=== PATIENT | female | born 1965 | race American Indian/Alaskan Native ===

== ENCOUNTER 2017-07-02 10:26 | Emergency (ER) | payer SELFPAY ==
[2017-07-02 11:09] LABS: Basophils % (Auto) 0.4 % (0.0-1.8); Eosinophils % (Auto) 0.7 % (0.0-4.3); Hematocrit 36.5 % (30.3-42.9); Hemoglobin 11.4 gm/dl (10.1-14.3); Mean Corpuscular HGB Conc 31 % (30-34); Mean Corpuscular Hemoglobin 27 pg (28-32); Mean Corpuscular Volume 86 fl (79-97); Platelet Count 331 K/mm3 (140-440); Red Blood Count 4.24 M/mm3 (3.65-5.03); Red Cell Distribution Width 16.8 % (13.2-15.2); White Blood Count 10.4 K/mm3 (4.5-11.0)
[2017-07-02 11:30] LABS: Alanine Aminotransferase 28 units/L (7-56); Albumin/Globulin Ratio 1.1 %; Alkaline Phosphatase 58 units/L (35-129); Anion Gap 19 mmol/L; Blood Urea Nitrogen 9 mg/dL (7-17); Calcium 9.1 mg/dL (8.4-10.2); Carbon Dioxide 26 mmol/L (22-30); Chloride 97.8 mmol/L (98-107); Glucose 85 mg/dL (65-100); Lipase 41 units/L (13-60); Sodium 139 mmol/L (137-145); Total Protein 7.8 g/dL (6.3-8.2)
[2017-07-02] MEDS ORDERED: MORPHINE IV ONE (12:08)
[2017-07-02] MEDS ORDERED: VASOTEC IV ONE (12:10)
[2017-07-02] MEDS ORDERED: ZOFRAN IV ONE (12:10)
--- NOTE | 2017-07-02 12:41 | Emergency Department Report ---
HPI - General Chief Complaint: Abdominal Pain Time Seen by Provider: 07/02/17 12:08 - HPI HPI: Patient is a 52-year-old -[place]is[place] female who presents to the ED with severe epigastric pain, 10 out of 10. She states that her pain is accompanied by nausea, vomiting but no urinary symptoms or diarrhea. She states her pain started yesterday evening after eating chicken. Patient has not taking any medication at home for his symptoms. She denies any exacerbating factors. She denies any alleviating factors. She denies any recent travel, She denies any sick contacts. Patient also have a history of a blood pressure but did not take her medications today. Her blood pressure is high and she states that she is having accompanying chest discomfort radiating to her left arm. She usually takes amlodipine 10 mg by mouth daily for her blood pressure. MD Complaint: abdominal pain -: Gradual Location: Epigastric Radiation: none Migration to: Lower abdomen Severity scale (0 -10): 10 Quality: sharp, burning Improves With: nothing Associated Symptoms: nausea, vomiting, chills ED Past Medical Hx - Past Medical History Previous Medical History?: Yes Hx Hypertension: Yes Additional medical history: Fibromyalgia - Surgical History Past Surgical History?: No - Family History Family history: hypertension - Social History Smoking Status: Never Smoker Substance Use Type: Alcohol - Medications Home Medications: Home Medications Medication Instructions Recorded Confirmed Last Taken Type Ciprofloxacin HCl [Ciprofloxacin 500 mg PO Q12H #20 tab 07/02/17 Unknown Rx TAB] Promethazine [Phenergan TAB] 25 mg PO Q6HR PRN #30 tab 07/02/17 Unknown Rx amLODIPine [Norvasc] 10 mg PO DAILY #30 tab 07/02/17 Unknown Rx ED Review of Systems ROS: Stated complaint: VOMITIN ABDOMINAL PAIN, HIGH BLOOD PRESSURE. Other details as noted in HPI Comment: All other systems reviewed and negative Eyes: denies: eye pain, eye discharge, vision change ENT: denies: ear pain, throat pain Respiratory: denies: cough, shortness of breath, wheezing Cardiovascular: chest pain Endocrine: no symptoms reported Gastrointestinal: abdominal pain, nausea Physical Exam - Physical Exam Vital Signs: Vital Signs 07/02/17 07/02/17 07/02/17 10:37 12:00 12:04 Temperature 98.6 F Pulse Rate 93 H Respiratory 16 26 H 18 Rate Blood Pressure 195/134 Blood Pressure [Right] O2 Sat by Pulse 100 99 99 Oximetry 07/02/17 07/02/17 07/02/17 12:07 12:15 12:32 Temperature 98.6 F Pulse Rate 95 H 99 H Respiratory 18 25 H 18 Rate Blood Pressure 218/128 Blood Pressure 225/133 [Right] O2 Sat by Pulse 100 Oximetry Physical Exam: - Physical Exam - General Limitations: No Limitations General appearance: alert, in no apparent distress, obese - Head Head exam: Present: atraumatic, normocephalic - Eye Eye exam: Present: normal appearance - ENT ENT exam: Present: mucous membranes moist - Neck Neck exam: Present: normal inspection - Respiratory Respiratory exam: Present: normal lung sounds bilaterally. Absent: respiratory distress - Cardiovascular Cardiovascular Exam: Present: normal rhythm, tachycardia. Absent: systolic murmur, diastolic murmur, rubs, gallop - GI/Abdominal GI/Abdominal exam: Present: soft, normal bowel sounds, but has epigastric tenderness - Extremities Exam Extremities exam: Present: normal inspection - Back Exam Back exam: Present: normal inspection - Neurological Exam Neurological exam: Present: alert, oriented X3 - Psychiatric Psychiatric exam: normal affect and mood - Skin Skin exam: Present: warm, dry, intact, normal color. Absent: rash ED Course Vital Signs 07/02/17 07/02/17 07/02/17 10:37 12:00 12:04 Temperature 98.6 F Pulse Rate 93 H Respiratory 16 26 H 18 Rate Blood Pressure 195/134 Blood Pressure [Right] O2 Sat by Pulse 100 99 99 Oximetry 07/02/17 07/02/17 07/02/17 12:07 12:15 12:32 Temperature 98.6 F Pulse Rate 95 H 99 H Respiratory 18 25 H 18 Rate Blood Pressure 218/128 Blood Pressure 225/133 [Right] O2 Sat by Pulse 100 Oximetry ED Medical Decision Making - Lab Data Result diagrams: 07/02/17 10:51 07/02/17 10:51 Critical care attestation.: If time is entered above; I have spent that time in minutes in the direct care of this critically ill patient, excluding procedure time. ED Disposition Clinical Impression: Enteritis, Hepatomegaly Disposition: DC-01 TO HOME OR SELFCARE Is pt being admited?: No Does the pt Need Aspirin: No Condition: Stable Instructions: Abdominal Pain (ED) Prescriptions: amLODIPine [Norvasc] 10 mg PO DAILY #30 tab Ciprofloxacin HCl [Ciprofloxacin TAB] 500 mg PO Q12H #20 tab Promethazine [Phenergan TAB] 25 mg PO Q6HR PRN #30 tab PRN Reason: Nausea Referrals: PRIMARY CARE, [Primary Care Provider] - 3-5 Days DAMON MORELAND MD [Staff Physician] - 3-5 Days
--- NOTE | 2017-07-02 12:48 | XRay Report ---
CHEST ONE VIEW INDICATION: Chest pain radiating to left arm, shortness of breath, high blood pressure. COMPARISON: None similar. FINDINGS: Portable, single, frontal chest radiograph demonstrates normal cardiomediastinal silhouette. Clear lungs. Mild thoracic spine degenerative changes. Extrinsic EKG leads. CONCLUSION: No acute disease in the chest. Thank you for the opportunity to participate in this patient's care.
[2017-07-02] MEDS ORDERED: NACL ONE (12:57)
[2017-07-02 13:44] LABS: Bilirubin,Urine NEG (Negative); Blood,Urine NEG (Negative); Ketones,Urine 20 mg/dL (Negative); Leukocyte Esterase,Urine NEG (Negative); Nitrite,Urine NEG (Negative); Urobilinogen,Urine < 2.0 mg/dL (<2.0)
--- NOTE | 2017-07-02 14:20 | Cat Scan Report ---
CT ABDOMEN AND PELVIS WITH CONTRAST INDICATION: Severe epigastric abdominal pain. COMPARISON: None similar. FINDINGS: Abdomen and pelvis CT performed following intravenous administration of 100 cc of Omnipaque 300. LUNG BASES: Top normal heart size. Nonspecific distal esophageal wall prominence/thickening, not excluded for gastroesophageal reflux and/or hiatal hernia, amongst others. Right hemidiaphragm slightly elevated. ABDOMEN: Mild diffuse fatty hepatic infiltration suspected. Right hepatic lobe 16.7 cm in length. Increased focal fatty infiltration also noted involving the caudate lobe, periligamentous and also slight pericholecystic. No biliary dilatation. Spleen, gallbladder, pancreas, adrenals, nonaneurysmal abdominal aorta, IVC and kidneys within normal limits. No ascites or size significant adenopathy. Minimal abdominal ascites now noted as perisplenic and in the Taylor's pouch. Nonopacified GI tract evaluation limited, though overall nonobstructive. Duodenum however prominent/dilated with maximum caliber of 3.6 cm along the third portion, axial image 156, series 2. Few of the left hemiabdomen small bowel loops nondistended with somewhat exaggerated wall thickness as on axial image 218, series 2. Few other mid to distal small bowel loops in the right lower quadrant prominent/fluid-filled with caliber between 1.6-2.6 cm, axial images 224-260 with surrounding ascites and stranding. Terminal ileum however appears unremarkable as on axial image 197. Normal appendix also felt seen more anteriorly. Normal caliber colon. Slight distal descending colon diverticula. Fat-containing umbilical hernia with a transverse neck of 1.1 cm. PELVIS: Moderate pelvic free fluid measuring 18 HU. Some endometrial canal fluid presumed physiologic. Otherwise unremarkable uterus, urinary bladder and the rectosigmoid. Few small left hemipelvic phleboliths. No size significant adenopathy. Asymmetrically advanced right hip degenerative changes with hypertrophy/spurring, heterogeneity and severe joint space narrowing. Mild lumbar levoscoliosis apex about L2. Mild multilevel spinal degenerative spurring as well. CONCLUSION: 1. CT appearance suspicious for mid to distal enteritis involving the lower abdominal/right lower quadrant small bowel loops, as described. Slight ileus may also be developing. 2. Moderate pelvic and minimal abdominal ascites. 3. Various other incidental findings, including fatty liver, small fat-containing umbilical hernia and asymmetrically advanced right hip degenerative changes, amongst others, as above. I phoned the above results to Dr. Carbajal in the ER, 2:10 PM, 07/02/2017. Thank you for the opportunity to participate in this patient's care.
[2017-07-02 15:15] VITALS: BP 164/87
== END 2017-07-02 15:15 | disposition home or self-care (01) ==
LOC: ED 10:26
DX: K52.9 Noninfective gastroenteritis and colitis, unspecified (principal); R16.0 Hepatomegaly, not elsewhere classified; I10 Essential (primary) hypertension
CPT/HCPCS: 36415; 71010; 74177; 80053; 81001; 83690; 84484; 84703; 85025; 93005; 93010; 96374; 96375; 99284; J2270; J2405

== ENCOUNTER 2017-11-03 11:57 | Emergency (ER) | payer SELFPAY ==
[2017-11-03] MEDS ORDERED: NORVASC PO ONE (14:03)
[2017-11-03 15:35] LABS: Basophils # (Auto) 0.1 K/mm3 (0.0-0.1); Eosinophils % (Auto) 0.7 % (0.0-4.3); Hematocrit 36.8 % (30.3-42.9); Hemoglobin 11.8 gm/dl (10.1-14.3); Lymphocytes # (Auto) 0.9 K/mm3 (1.2-5.4); Lymphocytes % (Auto) 13.9 % (13.4-35.0); Mean Corpuscular HGB Conc 32 % (30-34); Mean Corpuscular Hemoglobin 28 pg (28-32); Mean Corpuscular Volume 87 fl (79-97); Monocytes # (Auto) 0.6 K/mm3 (0.0-0.8); Monocytes % (Auto) 9.1 % (0.0-7.3); Platelet Count 322 K/mm3 (140-440); Red Blood Count 4.22 M/mm3 (3.65-5.03); Red Cell Distribution Width 16.4 % (13.2-15.2)
[2017-11-03 15:46] LABS: BUN/Creatinine Ratio 11; Blood Urea Nitrogen 8 mg/dL (7-17); Calcium 8.9 mg/dL (8.4-10.2); Hemolysis Index 9
[2017-11-03 16:12] LABS: Bilirubin,Urine NEG (Negative); Blood,Urine LG (Negative); Color,Urine Yellow (Yellow); Mucus,Urine 1+ /HPF; Nitrite,Urine NEG (Negative)
[2017-11-04 03:14] VITALS: BP 141/93
[2017-11-04] MEDS ORDERED: MOTRIN PO ONE (06:47)
--- NOTE | 2017-11-04 06:54 | Emergency Department Report ---
- General Chief Complaint: Upper Respiratory Infection Stated Complaint: BODY ACHES/ HTN/ COUGH Time Seen by Provider: 11/04/17 06:46 Source: patient Mode of arrival: Ambulatory Limitations: No Limitations - History of Present Illness Initial Comments: Patient is a 52-year-old -[place] female with history of hypertension who presents with flulike symptoms times 2 days symptoms described as cough fever malaise sore throat and head congestion pain patient denies sick contacts secondary complaint out of blood pressure medicines 3 months on amlodipine 10 mg by mouth daily with last dose being 3 months ago. Patient denies cough shortness of breath no wheezing MD Complaint: fever, cough, sore throat, rhinorrhea, nasal congestion, sinus pain Onset/Timin -: days(s) Severity: moderate Severity scale (0 -10): 4 Quality: crushing Consistency: constant Improves With: nothing Worsens With: activity Associated Symptoms: fever, chills, myalgias, rhinorrhea, nasal congestion, sore throat, cough, ear pain. denies: nausea, vomiting, dysuria, rash Treatments Prior to Arrival: none - Related Data Previous Rx's Medication Instructions Recorded Last Taken Type Ciprofloxacin HCl [Ciprofloxacin 500 mg PO Q12H #20 tab 07/02/17 Unknown Rx TAB] Promethazine [Phenergan TAB] 25 mg PO Q6HR PRN #30 tab 07/02/17 Unknown Rx amLODIPine [Norvasc] 10 mg PO DAILY #30 tab 07/02/17 Unknown Rx Amoxicillin/Potassium Clav 1 each PO BID #20 tablet 11/04/17 Unknown Rx [Augmentin 875-125 Tablet] Codeine Phosphate/Guaifenesin 5 ml PO TID PRN #120 ml 11/04/17 Unknown Rx [Guaifenesin-Codeine Syrup] Ibuprofen 800 mg PO TID PRN #30 tablet 11/04/17 Unknown Rx amLODIPine [Norvasc] 10 mg PO DAILY #90 tab 11/04/17 Unknown Rx Allergies Allergy/AdvReac Type Severity Reaction Status Date / Time No Known Allergies Allergy Unverified 04/22/15 11:52 ED Review of Systems ROS: Stated complaint: BODY ACHES/ HTN/ COUGH Other details as noted in HPI Constitutional: chills, fever. denies: weakness Eyes: denies: eye pain, eye discharge, vision change ENT: ear pain, throat pain, congestion Respiratory: cough. denies: shortness of breath, wheezing Cardiovascular: denies: chest pain, palpitations Endocrine: no symptoms reported Gastrointestinal: denies: abdominal pain, nausea, diarrhea Genitourinary: denies: urgency, dysuria, discharge Musculoskeletal: denies: back pain, joint swelling, arthralgia Skin: denies: rash, lesions Neurological: denies: headache, weakness, paresthesias, vertigo Psychiatric: denies: anxiety, depression Hematological/Lymphatic: denies: easy bleeding, easy bruising ED Past Medical Hx - Past Medical History Previous Medical History?: Yes Hx Hypertension: Yes Additional medical history: Fibromyalgia - Surgical History Past Surgical History?: No - Family History Family history: hypertension - Social History Smoking Status: Never Smoker Substance Use Type: Alcohol, Prescribed - Medications Home Medications: Home Medications Medication Instructions Recorded Confirmed Last Taken Type Ciprofloxacin HCl [Ciprofloxacin 500 mg PO Q12H #20 tab 07/02/17 Unknown Rx TAB] Promethazine [Phenergan TAB] 25 mg PO Q6HR PRN #30 tab 07/02/17 Unknown Rx amLODIPine [Norvasc] 10 mg PO DAILY #30 tab 07/02/17 Unknown Rx Amoxicillin/Potassium Clav 1 each PO BID #20 tablet 11/04/17 Unknown Rx [Augmentin 875-125 Tablet] Codeine Phosphate/Guaifenesin 5 ml PO TID PRN #120 ml 11/04/17 Unknown Rx [Guaifenesin-Codeine Syrup] Ibuprofen 800 mg PO TID PRN #30 tablet 11/04/17 Unknown Rx amLODIPine [Norvasc] 10 mg PO DAILY #90 tab 11/04/17 Unknown Rx ED Physical Exam - General Limitations: No Limitations General appearance: alert, in no apparent distress - Head Head exam: Present: atraumatic, normocephalic - Eye Eye exam: Present: normal appearance, PERRL, EOMI Pupils: Present: normal accommodation - ENT ENT exam: Present: mucous membranes moist - Expanded ENT Exam Expanded TM/Canal exam: Erythema: Right TM, Left TM, Canal Tenderness: Right TM, Left TM Mouth exam: Present: trismus Throat exam: Positive: tonsillar erythema, tonsillomegaly, other (bilat maxillary and sinus pain to palpation there is no erythema no edema ). Negative : tonsillar exudate, R peritonsillar mass, L peritonsillar mass - Neck Neck exam: Present: normal inspection, full ROM. Absent: tenderness, lymphadenopathy, thyromegaly - Respiratory Respiratory exam: Present: normal lung sounds bilaterally. Absent: respiratory distress, wheezes, stridor, chest wall tenderness - Cardiovascular Cardiovascular Exam: Present: regular rate, normal rhythm, normal heart sounds. Absent: systolic murmur, diastolic murmur, rubs, gallop - GI/Abdominal GI/Abdominal exam: Present: soft, normal bowel sounds. Absent: distended, tenderness, guarding, rebound, rigid, mass, bruit - Rectal Rectal exam: Present: deferred - Extremities Exam Extremities exam: Present: normal inspection, full ROM, normal capillary refill. Absent: tenderness, pedal edema, joint swelling, calf tenderness - Back Exam Back exam: Present: normal inspection, full ROM. Absent: tenderness, CVA tenderness (R), CVA tenderness (L), muscle spasm, paraspinal tenderness, vertebral tenderness, rash noted - Neurological Exam Neurological exam: Present: alert, oriented X3, CN II-XII intact, normal gait, reflexes normal - Psychiatric Psychiatric exam: Present: normal affect, normal mood - Skin Skin exam: Present: warm, dry, intact, normal color. Absent: rash ED Course Vital Signs 11/03/17 11/03/17 11/04/17 13:55 14:10 03:13 Temperature 99.9 F H 98.3 F Pulse Rate 121 H 121 H 102 H Respiratory 22 14 Rate Blood Pressure 180/120 180/120 141/93 O2 Sat by Pulse 99 98 Oximetry ED Medical Decision Making - Lab Data Result diagrams: 11/03/17 15:15 11/03/17 15:15 Laboratory Tests 11/03/17 11/03/17 11/03/17 15:15 15:15 Unknown WBC 6.8 RBC 4.22 Hgb 11.8 Hct 36.8 MCV 87 MCH 28 MCHC 32 RDW 16.4 H Plt Count 322 Lymph % (Auto) 13.9 [place] % (Auto) 9.1 H Eos % (Auto) 0.7 Baso % (Auto) 1.0 Lymph # 0.9 L [place] # 0.6 Eos # 0.0 Baso # 0.1 Seg Neutrophils % 75.3 H Seg Neutrophils # 5.1 Sodium 136 L Potassium 3.4 L Chloride 95.0 L Carbon Dioxide 25 Anion Gap 19 BUN 8 Creatinine 0.7 Estimated GFR > 60 BUN/Creatinine Ratio 11 Glucose 80 Calcium 8.9 Urine Color Yellow Urine Turbidity Clear Urine pH 5.0 Ur Specific [place] 1.029 Urine Protein 100 mg/dl Urine Glucose (UA) Neg Urine Ketones 80 Urine Blood Lg Urine Nitrite Neg Urine Bilirubin Neg Urine Urobilinogen 2.0 Ur Leukocyte Esterase Neg Urine WBC (Auto) 1.0 Urine RBC (Auto) 3.0 U Epithel Cells (Auto) 6.0 Urine Mucus 1+ - Medical Decision Making Patient is a 52-year-old -[place] female with history of hypertension who presents with flulike symptoms times 2 days symptoms described as cough fever malaise sore throat and head congestion pain patient denies sick contacts secondary complaint out of blood pressure medicines 3 months on amlodipine 10 mg by mouth daily with last dose being 3 months ago. Patient denies cough shortness of breath no wheezing exam: pt appears well, hr now 102, bp: 141/93 after nsaid and dose of home medications, pt denies sob appears nontoxic, exam: ent: bilat tm erythema pain, nose; boggy bilat turbinate erythema clear post nasal , sinus: bilat maxillary and frontal sinus pain , phayrnx: moderate erythema no exudate no lesions uvula midline no stridor, lungs clear bilat no wheezing , pt is tolerating po intake without n/v headache is improved to 1/10 at this plan: stop otc cold medications as they cause elvelated bp, hydration regimen as directed, refill amlodipine, tx for uri with sinusitis, follow up with [facility] in 2-3 days return to emergency if symptoms worsen. pt verbalized agreement and understanding with discharge plan. Critical care attestation.: If time is entered above; I have spent that time in minutes in the direct care of this critically ill patient, excluding procedure time. ED Disposition Clinical Impression: URI (upper respiratory infection) Qualifiers: URI type: unspecified viral URI Qualified Code(s): J06.9 - Acute upper respiratory infection, unspecified; B97.89 - Other viral agents as the cause of diseases classified elsewhere; B97.89 - Other viral agents as the cause of diseases classified elsewhere AOM (acute otitis media) Qualifiers: Otitis media type: serous Laterality: bilateral Recurrence: not specified as recurrent Qualified Code(s): H65.03 - Acute serous otitis media, bilateral Sinusitis Qualifiers: Sinusitis location: maxillary Chronicity: acute Recurrence: non-recurrent Qualified Code(s): J01.00 - Acute maxillary sinusitis, unspecified Disposition: TO HOME OR SELFCARE Is pt being admited?: No Does the pt Need Aspirin: No Condition: Good Instructions: Sinusitis (ED), Otitis Media (ED), Upper Respiratory Infection ( ED) Prescriptions: amLODIPine [Norvasc] 10 mg PO DAILY #90 tab Amoxicillin/Potassium Clav [Augmentin 875-125 Tablet] 1 each PO BID #20 tablet Codeine Phosphate/Guaifenesin [Guaifenesin-Codeine Syrup] 5 ml PO TID PRN #120 ml PRN Reason: cough Ibuprofen 800 mg PO TID PRN #30 tablet PRN Reason: pain and fever Referrals: SUSANA MARTIN MD [Primary Care Provider] - 3-5 Days Forms: Work/School Release Form(ED) Time of Disposition: 07:15
== END 2017-11-04 07:25 | disposition home or self-care (01) ==
LOC: ED 11:57
DX: J06.9 Acute upper respiratory infection, unspecified (principal); H66.93 Otitis media, unspecified, bilateral; J32.1 Chronic frontal sinusitis; J32.0 Chronic maxillary sinusitis; I10 Essential (primary) hypertension
CPT/HCPCS: 36415; 80048; 81001; 85025; 99283

== ENCOUNTER 2017-11-07 07:16 | Emergency (ER) | payer SELFPAY ==
[2017-11-07 08:04] VITALS: BP 161/106
[2017-11-07] MEDS ORDERED: MOTRIN PO ONE (10:04)
--- NOTE | 2017-11-07 10:07 | Emergency Department Report ---
ED ENT HPI - General Chief complaint: Earache Stated complaint: Ear Hurts Time Seen by Provider: 11/07/17 10:03 Source: patient Mode of arrival: Ambulatory Limitations: No Limitations - History of Present Illness Initial comments: 52-year-old -[place] female comes in for complaint of right ear ache for 3 days. It is reported the patient was seen in the ED for the same. It is not getting any better. Patient does admit to having a recent upper respiratory issues. 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 Her last menses was 11/03/2017. She denies any fever or chills upon review of chart and noted her blood pressures elevated at 161/108. She reports that she took her blood pressure medicine this morning. complaint: ear pain Onset/Timin -: days(s) Location: R ear Severity scale (0 -10): 7 Quality: aching Consistency: constant - Related Data Previous Rx's Medication Instructions Recorded Last Taken Type Ciprofloxacin HCl [Ciprofloxacin 500 mg PO Q12H #20 tab 07/02/17 Unknown Rx TAB] Promethazine [Phenergan TAB] 25 mg PO Q6HR PRN #30 tab 07/02/17 Unknown Rx amLODIPine [Norvasc] 10 mg PO DAILY #30 tab 07/02/17 Unknown Rx Amoxicillin/Potassium Clav 1 each PO BID #20 tablet 11/04/17 Unknown Rx [Augmentin 875-125 Tablet] Codeine Phosphate/Guaifenesin 5 ml PO TID PRN #120 ml 11/04/17 Unknown Rx [Guaifenesin-Codeine Syrup] Ibuprofen 800 mg PO TID PRN #30 tablet 11/04/17 Unknown Rx amLODIPine [Norvasc] 10 mg PO DAILY #90 tab 11/04/17 Unknown Rx Ibuprofen 600 mg PO Q8H PRN #30 tablet 11/07/17 Unknown Rx Allergies Allergy/AdvReac Type Severity Reaction Status Date / Time No Known Allergies Allergy Verified 11/07/17 08:01 ED Dental HPI - General Chief complaint: Earache Stated complaint: Ear Hurts Time Seen by Provider: 11/07/17 10:03 Source: patient Mode of arrival: Ambulatory Limitations: No Limitations - Related Data Previous Rx's Medication Instructions Recorded Last Taken Type Ciprofloxacin HCl [Ciprofloxacin 500 mg PO Q12H #20 tab 09/07/17 Unknown Rx TAB] Promethazine [Phenergan TAB] 25 mg PO Q6HR PRN #30 tab 07/02/17 Unknown Rx amLODIPine [Norvasc] 10 mg PO DAILY #30 tab 07/02/17 Unknown Rx Amoxicillin/Potassium Clav 1 each PO BID #20 tablet 11/04/17 Unknown Rx [Augmentin 875-125 Tablet] Codeine Phosphate/Guaifenesin 5 ml PO TID PRN #120 ml 11/04/17 Unknown Rx [Guaifenesin-Codeine Syrup] Ibuprofen 800 mg PO TID PRN #30 tablet 11/04/17 Unknown Rx amLODIPine [Norvasc] 10 mg PO DAILY #90 tab 11/04/17 Unknown Rx Ibuprofen 600 mg PO Q8H PRN #30 tablet 11/07/17 Unknown Rx Allergies Allergy/AdvReac Type Severity Reaction Status Date / Time No Known Allergies Allergy Verified 11/07/17 08:01 ED Review of Systems ROS: Stated complaint: Ear Hurts Other details as noted in HPI Constitutional: denies: chills, fever Eyes: denies: eye pain, eye discharge, vision change ENT: ear pain (right) Respiratory: denies: cough, shortness of breath, wheezing Cardiovascular: denies: chest pain, palpitations Endocrine: no symptoms reported Gastrointestinal: denies: abdominal pain, nausea, diarrhea Genitourinary: denies: urgency, dysuria, discharge Musculoskeletal: denies: back pain, joint swelling, arthralgia Skin: denies: rash, lesions Neurological: denies: headache, weakness, paresthesias Psychiatric: denies: anxiety, depression Hematological/Lymphatic: denies: easy bleeding, easy bruising ED Past Medical Hx - Past Medical History Hx Hypertension: Yes Additional medical history: Fibromyalgia/ DEAF IN LEFT EAR - Surgical History Past Surgical History?: No - Social History Smoking Status: Never Smoker Substance Use Type: None - Medications Home Medications: Home Medications Medication Instructions Recorded Confirmed Last Taken Type Ciprofloxacin HCl [Ciprofloxacin 500 mg PO Q12H #20 tab 07/02/17 Unknown Rx TAB] Promethazine [Phenergan TAB] 25 mg PO Q6HR PRN #30 tab 07/02/17 Unknown Rx amLODIPine [Norvasc] 10 mg PO DAILY #30 tab 07/02/17 Unknown Rx Amoxicillin/Potassium Clav 1 each PO BID #20 tablet 11/04/17 Unknown Rx [Augmentin 875-125 Tablet] Codeine Phosphate/Guaifenesin 5 ml PO TID PRN #120 ml 11/04/17 Unknown Rx [Guaifenesin-Codeine Syrup] Ibuprofen 800 mg PO TID PRN #30 tablet 11/04/17 Unknown Rx amLODIPine [Norvasc] 10 mg PO DAILY #90 tab 11/04/17 Unknown Rx Ibuprofen 600 mg PO Q8H PRN #30 tablet 11/07/17 Unknown Rx ED Physical Exam - General Limitations: No Limitations General appearance: alert, in no apparent distress - Head Head exam: Present: atraumatic, normocephalic - Eye Eye exam: Present: normal appearance - ENT ENT exam: Present: mucous membranes moist - Expanded ENT Exam Expanded TM/Canal exam: Cerumen Impaction: Right TM, Canal Tenderness: Right TM (tragus) - Neck Neck exam: Present: normal inspection - Respiratory Respiratory exam: Present: normal lung sounds bilaterally. Absent: respiratory distress - Cardiovascular Cardiovascular Exam: Present: regular rate, normal rhythm. Absent: systolic murmur, diastolic murmur, rubs, gallop ED Course Vital Signs 11/07/17 08:01 Temperature 98.3 F Pulse Rate 100 H Respiratory 16 Rate Blood Pressure 161/106 O2 Sat by Pulse 99 Oximetry ED Medical Decision Making - Medical Decision Making Patient's been evaluated by this provider fast track. I informed patient that her right ear has cerumen impaction and that I will need to have one of the nurses or techs to remove wax and unable to do a better exam of the right ear. Patient verbalized understanding. Critical care attestation.: If time is entered above; I have spent that time in minutes in the direct care of this critically ill patient, excluding procedure time. ED Disposition Clinical Impression: Right ear impacted cerumen, Deafness in left ear Hypertension Qualifiers: Hypertension type: unspecified Qualified Code(s): I10 - Essential (primary) hypertension Disposition: TO HOME OR SELFCARE Is pt being admited?: No Does the pt Need Aspirin: No Condition: Stable Instructions: Hypertension (ED), Cerumen Impaction (ED) Additional Instructions: Please follow up with the ear nose and throat for chronic cerumen impaction. Continue with her antibiotics and ibuprofen for pain management. Please understand while taking either ibuprofen you need to drink plenty of fluids such as water and eat prior to taking the medication. Prescriptions: Ibuprofen 600 mg PO Q8H PRN #30 tablet PRN Reason: Pain Referrals: PRIMARY CARE, [Primary Care Provider] - 3-5 Days ENT [facility] [Provider Group] - 3-5 Days ENT [facility] [Provider Group] - 3-5 Days
[2017-11-07] MEDS ORDERED: COLACE PO ONE (10:35)
== END 2017-11-07 11:26 | disposition home or self-care (01) ==
LOC: ED 07:16
DX: H61.21 Impacted cerumen, right ear (principal); I10 Essential (primary) hypertension; M79.7 Fibromyalgia
CPT/HCPCS: 99282

== ENCOUNTER 2019-01-24 09:10 | Emergency (ER) | payer SELFPAY ==
[2019-01-24] MEDS ORDERED: SUBLIMAZE IM ONE (09:43)
[2019-01-24] MEDS ORDERED: ZOFRAN IM ONE (09:43)
[2019-01-24 10:03] LABS: Basophils % (Auto) 0.4 % (0.0-1.8); Eosinophils # (Auto) 0.1 K/mm3 (0.0-0.4); Eosinophils % (Auto) 0.8 % (0.0-4.3); Hemoglobin 11.1 gm/dl (10.1-14.3); Lymphocytes # (Auto) 2.2 K/mm3 (1.2-5.4); Lymphocytes % (Auto) 23.5 % (13.4-35.0); Mean Corpuscular HGB Conc 33 % (30-34); Mean Corpuscular Volume 85 fl (79-97); Monocytes # (Auto) 0.6 K/mm3 (0.0-0.8); Monocytes % (Auto) 5.9 % (0.0-7.3); Platelet Count 393 K/mm3 (140-440); Red Blood Count 3.98 M/mm3 (3.65-5.03); Red Cell Distribution Width 18.4 % (13.2-15.2)
[2019-01-24] MEDS ORDERED: CATAPRES PO ONE (10:08)
--- NOTE | 2019-01-24 10:14 | Emergency Department Report ---
HPI - General Chief Complaint: Pain General Time Seen by Provider: 01/24/19 09:35 - HPI HPI: Room 3 The patient is a 53-year-old female presenting with a chief complaint of left flank pain. The patient states for one week she's had pain in her left flank that sometimes migrates to the right flank. Patient denies dysuria or hematuria. Patient denies nausea or vomiting. Patient denies history of fever. Patient gives her pain a score of 10/10. Location: Left flank Duration: One week Quality: Pain Severity: 10/10 Modifying factors: [see above] Context: [see above] Mode of transportation: [not driving] ED Past Medical Hx - Past Medical History Previous Medical History?: Yes Hx Hypertension: Yes Additional medical history: Fibromyalgia/ DEAF IN LEFT EAR - Surgical History Past Surgical History?: No - Family History Family history: no significant - Social History Smoking Status: Never Smoker Substance Use Type: None (denies illicit drug use), Alcohol (occasional) - Medications Home Medications: Home Medications Medication Instructions Recorded Confirmed Last Taken Type Ciprofloxacin HCl [Ciprofloxacin 500 mg PO Q12H #20 tab 07/02/17 Unknown Rx TAB] Promethazine [Phenergan TAB] 25 mg PO Q6HR PRN #30 tab 07/02/17 Unknown Rx amLODIPine [Norvasc] 10 mg PO DAILY #30 tab 07/02/17 Unknown Rx Amoxicillin/Potassium Clav 1 each PO BID #20 tablet 11/04/17 Unknown Rx [Augmentin 875-125 Tablet] Codeine Phosphate/Guaifenesin 5 ml PO TID PRN #120 ml 11/04/17 Unknown Rx [Guaifenesin-Codeine Syrup] Ibuprofen 800 mg PO TID PRN #30 tablet 11/04/17 Unknown Rx amLODIPine [Norvasc] 10 mg PO DAILY #90 tab 11/04/17 Unknown Rx Ibuprofen 600 mg PO Q8H PRN #30 tablet 11/07/17 Unknown Rx Cyclobenzaprine [Flexeril] 10 mg PO TID PRN #14 tablet 01/24/19 Unknown Rx Ibuprofen [Motrin 800 MG tab] 800 mg PO Q8HR PRN #20 tablet 01/24/19 Unknown Rx amLODIPine [Norvasc] 5 mg PO DAILY #90 tab 01/24/19 Unknown Rx ED Review of Systems ROS: Stated complaint: LFT SIDE PAIN/HBP/RT SIDE HIP Other details as noted in HPI Constitutional: no symptoms reported. denies: fever Eyes: denies: eye pain ENT: denies: throat pain Respiratory: no symptoms reported Cardiovascular: denies: chest pain Endocrine: no symptoms reported Gastrointestinal: denies: abdominal pain, nausea, vomiting Genitourinary: denies: dysuria, hematuria Musculoskeletal: back pain Neurological: denies: headache Physical Exam - Physical Exam Vital Signs: Vital Signs 01/24/19 09:15 Temperature 98.4 F Pulse Rate 114 H Respiratory 18 Rate Blood Pressure 228/126 O2 Sat by Pulse 100 Oximetry Physical Exam: GENERAL: The patient is well-developed well-nourished female lying on stretcher not appearing to be in acute distress. [] HEENT: Normocephalic. Atraumatic. Extraocular motions are intact. Patient has moist mucous membranes. NECK: Supple. Trachea midline CHEST/LUNGS: Clear to auscultation. There is no respiratory distress noted. HEART/CARDIOVASCULAR: Regular. There is no tachycardia. There is no gallop rub or murmur. ABDOMEN: Abdomen is soft, nontender. Patient has normal bowel sounds. There is no abdominal distention. SKIN: There is no rash. There is no edema. There is no diaphoresis. NEURO: The patient is awake, alert, and oriented. The patient is cooperative. The patient has normal speech MUSCULOSKELETAL: There is left CVA tenderness. There is no evidence of acute injury. ED Course Vital Signs 01/24/19 09:15 Temperature 98.4 F Pulse Rate 114 H Respiratory 18 Rate Blood Pressure 228/126 O2 Sat by Pulse 100 Oximetry ED Medical Decision Making - Lab Data Result diagrams: 01/24/19 09:46 01/24/19 09:46 - Radiology Data Radiology results: report reviewed (CT abdomen and pelvis), image reviewed (CT abdomen and pelvis) [facility] [address] [place] [address] Cat Scan Report Signed Patient: GEMA HERNANDEZ MR#: [id number] : 1965 Acct:[id number] Age/Sex: 53 / F ADM Date: 01/24/19 Loc: ED Attending Dr: Ordering Physician: MILLICENT PIÑA MD Date of Service: 01/24/19 Procedure(s): CT abdomen pelvis wo con Accession Number(s): [id number] cc: MILLICENT PIÑA MD CT ABDOMEN PELVIS WITHOUT CONTRAST: HISTORY: Left flank pain. COMPARISON: 07/02/17. TECHNIQUE: Helical CT in 1.25mm intervals without IV contrast. Sagittal and coronal reconstructions. FINDINGS: Lung bases: Normal. Liver: Normal. Biliary system: Normal. Pancreas: Normal. Spleen: Normal. Kidneys/ureters/bladder: Normal. Adrenal glands: Normal. Aorta: Normal. Intestines: Normal. Appendix: Normal. Pelvic viscera: Normal. Ascites: None. Adenopathy: None. Musculoskeletal: Intact. Advanced degenerative changes are noted at the right hip. No fracture or suspicious bony lesion. IMPRESSION: Unremarkable CT scan of the abdomen and pelvis without contrast. No clear explanation for left flank pain. Advanced osteoarthritis of the right hip. Transcribed By: TTR Dictated By: ROYAL DOMINGUEZ JR, MD Electronically Authenticated By: ROYAL DOMINGUEZ JR, MD Signed Date/Time: 01/24/191122 DD/ 21 TD/TT: 01/24/191122 - Differential Diagnosis UTI, pyelonephritis, renal colic, fibromyalgia Critical care attestation.: If time is entered above; I have spent that time in minutes in the direct care of this critically ill patient, excluding procedure time. ED Disposition Clinical Impression: Left flank pain, Fibromyalgia, Hypertension Disposition: TO HOME OR SELFCARE Is pt being admited?: No Does the pt Need Aspirin: No Condition: Stable Instructions: Hypertension (ED) Additional Instructions: Return to the emergency department immediately should you develop worsening symptoms, fever, inability to tolerate food or liquid or any other concerns. Prescriptions: Cyclobenzaprine [Flexeril] 10 mg PO TID PRN #14 tablet PRN Reason: Muscle Spasm Ibuprofen [Motrin 800 MG tab] 800 mg PO Q8HR PRN #20 tablet PRN Reason: Pain , Severe (7-10) amLODIPine [Norvasc] 5 mg PO DAILY #90 tab Referrals: BOB HUERTAS MD [Primary Care Provider] - 3-5 Days DAILY LANGE MD [Staff Physician] - 3-5 Days (Dr. Lange is a primary physician. Please follow with him to be established as a patient) Time of Disposition: 11:37
[2019-01-24 10:20] LABS: Alanine Aminotransferase 25 units/L (7-56); Albumin 3.9 g/dL (3.9-5); BUN/Creatinine Ratio 15; Blood Urea Nitrogen 9 mg/dL (7-17); Calcium 8.9 mg/dL (8.4-10.2); Hemolysis Index 6
[2019-01-24 10:23] LABS: Bilirubin,Urine NEG (Negative); Blood,Urine SM (Negative); Color,Urine Yellow (Yellow); Mucus,Urine FEW /HPF; Urobilinogen,Urine < 2.0 mg/dL (<2.0)
--- NOTE | 2019-01-24 11:28 | Cat Scan Report ---
CT ABDOMEN PELVIS WITHOUT CONTRAST: HISTORY: Left flank pain. COMPARISON: 07/02/17. TECHNIQUE: Helical CT in 1.25mm intervals without IV contrast. Sagittal and coronal reconstructions. FINDINGS: Lung bases: Normal. Liver: Normal. Biliary system: Normal. Pancreas: Normal. Spleen: Normal. Kidneys/ureters/bladder: Normal. Adrenal glands: Normal. Aorta: Normal. Intestines: Normal. Appendix: Normal. Pelvic viscera: Normal. Ascites: None. Adenopathy: None. Musculoskeletal: Intact. Advanced degenerative changes are noted at the right hip. No fracture or suspicious bony lesion. IMPRESSION: Unremarkable CT scan of the abdomen and pelvis without contrast. No clear explanation for left flank pain. Advanced osteoarthritis of the right hip.
[2019-01-24 11:58] VITALS: BP 181/114
== END 2019-01-24 12:15 | disposition home or self-care (01) ==
LOC: ED 09:10
DX: M79.7 Fibromyalgia (principal); I10 Essential (primary) hypertension; R10.9 Unspecified abdominal pain
CPT/HCPCS: 36415; 74176; 80053; 81001; 85025; 96372; 99284; J2405; J3010

== ENCOUNTER 2019-05-29 10:36 | Emergency (ER) | payer SELFPAY ==
[2019-05-29 10:41] VITALS: BP 197/118
[2019-05-29] MEDS ORDERED: CATAPRES PO ONE (11:24)
[2019-05-29] MEDS ORDERED: IBUPROFEN PO ONE (11:24)
--- NOTE | 2019-05-29 12:43 | Emergency Department Report ---
ED General Adult HPI - General Chief complaint: Dental/Oral Stated complaint: HIGH BP/L EAR PAIN/TOOTHACHE Time Seen by Provider: 05/29/19 11:10 Source: patient Mode of arrival: Ambulatory Limitations: No Limitations - History of Present Illness Initial comments: Patient is a 53-year-old [place] female who is presenting with a right-sided toothache. Patient's symptoms pointing at tooth #15 stating that there is pain when she chews. It is aching throbbing pain that radiates to the right ear. Patient also states that her left ear feels clogged. The symptoms have been present for approximately 2 weeks. Patient has been out of her blood pressure medicines for the last 2 days and is complaining of hypertension. The patient denies any chest pain shortness of breath fevers chills nausea vomiting or sore throat at this time. Severity scale (0 -10): 10 - Related Data Previous Rx's Medication Instructions Recorded Last Taken Type Ciprofloxacin HCl [Ciprofloxacin 500 mg PO Q12H #20 tab 07/02/17 Unknown Rx TAB] Promethazine [Phenergan] 25 mg PO Q6HR PRN #30 tab 07/02/17 Unknown Rx amLODIPine [Norvasc] 10 mg PO DAILY #30 tab 07/02/17 Unknown Rx Amoxicillin/Potassium Clav 1 each PO BID #20 tablet 11/04/17 Unknown Rx [Augmentin 875-125 Tablet] Codeine Phosphate/Guaifenesin 5 ml PO TID PRN #120 ml 11/04/17 Unknown Rx [Guaifenesin-Codeine Syrup] Ibuprofen [Ibuprofen 800] 800 mg PO TID PRN #30 tablet 11/04/17 Unknown Rx Ibuprofen 600 mg PO Q8H PRN #30 tablet 11/07/17 Unknown Rx Cyclobenzaprine [Flexeril] 10 mg PO TID PRN #14 tablet 01/24/19 Unknown Rx amLODIPine [Norvasc] 5 mg PO DAILY #90 tab 01/24/19 Unknown Rx Clindamycin [Clindamycin CAP] 300 mg PO Q8H #21 cap 05/29/19 Unknown Rx Ibuprofen [Motrin 800 MG tab] 800 mg PO Q8HR PRN #10 tablet 05/29/19 Unknown Rx amLODIPine [Norvasc] 10 mg PO DAILY #90 tab 05/29/19 Unknown Rx traMADol [Ultram] 50 mg PO Q6HR PRN #12 tablet 05/29/19 Unknown Rx Allergies Allergy/AdvReac Type Severity Reaction Status Date / Time No Known Allergies Allergy Verified 11/07/17 08:01 ED Review of Systems ROS: Stated complaint: HIGH BP/L EAR PAIN/TOOTHACHE Other details as noted in HPI Comment: All other systems reviewed and negative ED Past Medical Hx - Past Medical History Previous Medical History?: Yes Hx Hypertension: Yes Additional medical history: Fibromyalgia/ DEAF IN LEFT EAR - Surgical History Past Surgical History?: No - Social History Smoking Status: Never Smoker Substance Use Type: None - Medications Home Medications: Home Medications Medication Instructions Recorded Confirmed Last Taken Type Ciprofloxacin HCl [Ciprofloxacin 500 mg PO Q12H #20 tab 07/02/17 Unknown Rx TAB] Promethazine [Phenergan] 25 mg PO Q6HR PRN #30 tab 07/02/17 Unknown Rx amLODIPine [Norvasc] 10 mg PO DAILY #30 tab 07/02/17 Unknown Rx Amoxicillin/Potassium Clav 1 each PO BID #20 tablet 11/04/17 Unknown Rx [Augmentin 875-125 Tablet] Codeine Phosphate/Guaifenesin 5 ml PO TID PRN #120 ml 11/04/17 Unknown Rx [Guaifenesin-Codeine Syrup] Ibuprofen [Ibuprofen 800] 800 mg PO TID PRN #30 tablet 11/04/17 Unknown Rx Ibuprofen 600 mg PO Q8H PRN #30 tablet 11/07/17 Unknown Rx Cyclobenzaprine [Flexeril] 10 mg PO TID PRN #14 tablet 01/24/19 Unknown Rx amLODIPine [Norvasc] 5 mg PO DAILY #90 tab 01/24/19 Unknown Rx Clindamycin [Clindamycin CAP] 300 mg PO Q8H #21 cap 05/29/19 Unknown Rx Ibuprofen [Motrin 800 MG tab] 800 mg PO Q8HR PRN #10 tablet 05/29/19 Unknown Rx amLODIPine [Norvasc] 10 mg PO DAILY #90 tab 05/29/19 Unknown Rx traMADol [Ultram] 50 mg PO Q6HR PRN #12 tablet 05/29/19 Unknown Rx ED Physical Exam - General Limitations: No Limitations General appearance: alert, in no apparent distress - Head Head exam: Present: atraumatic, normocephalic - Eye Eye exam: Present: normal appearance - ENT ENT exam: Present: mucous membranes moist - Expanded ENT Exam Expanded Ear exam: Present: normal external inspection TM/Canal exam: Cerumen Impaction: Left TM 1 - Dental Tenderness, Other (necrosis with adjacent gum swelling) - Neck Neck exam: Present: normal inspection - Respiratory Respiratory exam: Present: normal lung sounds bilaterally. Absent: respiratory distress, wheezes, rales, rhonchi - Cardiovascular Cardiovascular Exam: Present: regular rate, normal rhythm, normal heart sounds. Absent: systolic murmur, diastolic murmur, rubs, gallop - GI/Abdominal GI/Abdominal exam: Present: soft, normal bowel sounds. Absent: distended, tenderness, guarding, rebound - Extremities Exam Extremities exam: Present: normal inspection - Back Exam Back exam: Present: normal inspection - Neurological Exam Neurological exam: Present: alert, oriented X3 - Psychiatric Psychiatric exam: Present: normal affect, normal mood - Skin Skin exam: Present: warm, dry, intact, normal color. Absent: rash ED Course Vital Signs 05/29/19 05/29/19 10:39 11:38 Temperature 97.8 F Pulse Rate 78 78 Respiratory 16 Rate Blood Pressure 197/118 197/118 O2 Sat by Pulse 100 Oximetry ED Medical Decision Making - Medical Decision Making Patient with no evidence of end organ damage. Patient given a Catapres but I will also have her amlodipine refilled. Patient started on antibiotics for d ental abscess. Patient does have a cerumen impaction left ear and will have this irrigated. Critical care attestation.: If time is entered above; I have spent that time in minutes in the direct care of this critically ill patient, excluding procedure time. ED Disposition Clinical Impression: Hypertensive urgency, Dental abscess, Cerumen impaction Disposition: TO HOME OR SELFCARE Is pt being admited?: No Does the pt Need Aspirin: No Condition: Stable Instructions: Hypertension (ED), Dental Abscess (ED) Prescriptions: Clindamycin [Clindamycin CAP] 300 mg PO Q8H #21 cap Ibuprofen [Motrin 800 MG tab] 800 mg PO Q8HR PRN #10 tablet PRN Reason: Pain , Severe (7-10) amLODIPine [Norvasc] 10 mg PO DAILY #90 tab traMADol [Ultram] 50 mg PO Q6HR PRN #12 tablet PRN Reason: Pain Referrals: BOB HUERTAS MD [Primary Care Provider] - 3-5 Days Time of Disposition: 12:43
== END 2019-05-29 12:51 | disposition home or self-care (01) ==
LOC: ED 10:36
DX: K04.7 Periapical abscess without sinus (principal); I16.0 Hypertensive urgency; H61.22 Impacted cerumen, left ear; Z79.899 Other long term (current) drug therapy
CPT/HCPCS: 99282

== ENCOUNTER 2019-10-17 13:02 | Emergency (ER) | payer SELFPAY | END 2019-10-17 18:17 | disposition home or self-care (01) | LOC: ED 13:02 ==

== ENCOUNTER 2021-12-03 10:22 | Emergency (ER) | payer SELFPAY ==
--- NOTE | 2021-12-03 11:00 | Emergency Department Report ---
ED Extremity Problem HPI - General Chief complaint: Extremity Injury, Upper Stated complaint: LEFT ARM INJURY Time Seen by Provider: 12/03/21 10:58 Source: patient Mode of arrival: Ambulatory Limitations: No Limitations - History of Present Illness Initial comments: 56 yo comes to ER after having her arm shut in the door yesterday. She states it was an accident. No fall. No other trauma. No other injury. localized area of right distal ulnar area is swollen. neuro vasc intact with rapid cap refill and distal sensation intact MD Complaint: extremity pain -: Sudden, days(s) Location: left History of Same: No Radiation: none Quality: aching Consistency: constant Improves with: immobilization Worsens with: other Associated Symptoms: denies other symptoms - Related Data Previous Rx's Medication Instructions Recorded Last Taken Type amLODIPine 10 mg PO DAILY #30 tab 12/03/21 Unknown Rx traMADoL [Ultram] 50 mg PO Q6HR PRN #12 tablet 12/03/21 Unknown Rx Allergies Allergy/AdvReac Type Severity Reaction Status Date / Time No Known Allergies Allergy Verified 11/07/17 08:01 ED Review of Systems ROS: Stated complaint: LEFT ARM INJURY Other details as noted in HPI Comment: All other systems reviewed and negative ED Past Medical Hx - Past Medical History Previous Medical History?: Yes Hx Hypertension: Yes Additional medical history: Fibromyalgia/ DEAF IN LEFT EAR - Surgical History Past Surgical History?: No - Family History Family history: no significant - Social History Smoking Status: Never Smoker Substance Use Type: Alcohol - Medications Home Medications: Home Medications Medication Instructions Recorded Confirmed Last Taken Type amLODIPine 10 mg PO DAILY #30 tab 12/03/21 Unknown Rx traMADoL [Ultram] 50 mg PO Q6HR PRN #12 tablet 12/03/21 Unknown Rx ED Physical Exam - General Limitations: No Limitations General appearance: alert, in no apparent distress - Head Head exam: Present: atraumatic, normocephalic - Eye Eye exam: Present: normal appearance - ENT ENT exam: Present: mucous membranes moist - Neck Neck exam: Present: normal inspection - Respiratory Respiratory exam: Present: normal lung sounds bilaterally. Absent: respiratory distress - Cardiovascular Cardiovascular Exam: Present: regular rate, normal rhythm. Absent: systolic murmur, diastolic murmur, rubs, gallop - GI/Abdominal GI/Abdominal exam: Present: soft, normal bowel sounds - Extremities Exam Extremities exam: Present: normal inspection - Expanded Upper Extremity Exam Left Elbow exam: Present: normal inspection Forearm Wrist exam: Present: swelling Hand Wrist exam: Present: normal inspection - Back Exam Back exam: Present: normal inspection - Neurological Exam Neurological exam: Present: alert, oriented X3 - Psychiatric Psychiatric exam: Present: normal affect, normal mood - Skin Skin exam: Present: warm, dry, intact, normal color. Absent: rash ED Course Vital Signs 12/03/21 12/03/21 10:49 12:33 Temperature 98.7 F 98.7 F Pulse Rate 98 H 104 H Respiratory 16 14 Rate Blood Pressure 182/104 [Left] Blood Pressure 160/100 [Right] O2 Sat by Pulse 97 100 Oximetry ED Medical Decision Making - Radiology Data Radiology results: report reviewed, image reviewed fx - Medical Decision Making fx noted splint placed medicated for pain pt dc home with dc plan of care including rice/meds/splint care and ortho follow up. She verbalizes understanding of dc plan of care. Pt understands she needs t o see her pcp for ongoing management of her bp. On dc she fingers are warm, mobile, rapid cap refill- splint in place Vital Signs 12/03/21 12/03/21 10:49 12:33 Temperature 98.7 F 98.7 F Pulse Rate 98 H 104 H Respiratory 16 14 Rate Blood Pressure 182/104 [Left] Blood Pressure 160/100 [Right] O2 Sat by Pulse 97 100 Oximetry - Differential Diagnosis ro fx Critical care attestation.: If time is entered above; I have spent that time in minutes in the direct care of this critically ill patient, excluding procedure time. ED Disposition Clinical Impression: Ulnar fracture, HTN (hypertension), Medication refill Disposition: 01 HOME / SELF CARE / HOMELESS Is pt being admited?: No Does the pt Need Aspirin: No Condition: Stable Instructions: Ulnar Fracture, Cast or Splint Care, Adult, Hypertension (ED) Additional Instructions: splint- see care notes attached motrin or tylenol for mild pain ultram for severe pain keep elevated ice over fracture will help follow up with ortho johnson referral below Prescriptions: amLODIPine 10 mg PO DAILY #30 tab traMADoL [Ultram] 50 mg PO Q6HR PRN #12 tablet PRN Reason: Pain Referrals: PRIMARY MD JANIA [Primary Care Provider] - 3-5 Days DB LY MD [Staff Physician] - 3-5 Days Forms: Work/School Release Form(ED) Time of Disposition: 11:56
[2021-12-03] MEDS ORDERED: HYDROcodone/ACETAMINOPHEN 5-325 MG TAB PO ONE (11:48)
[2021-12-03] MEDS ORDERED: IBUPROFEN 800 MG TAB PO ONE (11:48)
--- NOTE | 2021-12-03 11:51 | XRay Report ---
LEFT WRIST 3 VIEWS INDICATION / CLINICAL INFORMATION: Fall with left wrist pain. COMPARISON: None available. FINDINGS: BONES / JOINT(S): There is an acute transverse fracture of the distal ulnar diaphysis. There is mild lateral and posterior displacement of the distal fracture fragment. The radius and carpal bones are i ntact. There is no evidence of dislocation. No significant arthritis. SOFT TISSUES: There is mild associated soft tissue swelling. ADDITIONAL FINDINGS: None. IMPRESSION: Acute, mildly displaced transverse fracture of the distal left ulnar shaft. Signer Name: Joshua Friend MD Signed: 12/03/2021 11:46 AM Workstation Name: [id number]
[2021-12-03 12:34] VITALS: BP 160/100
== END 2021-12-03 12:35 | disposition home or self-care (01) ==
LOC: ED 10:22
DX: S52.202A Unspecified fracture of shaft of left ulna, initial encounter for closed fracture (principal); I10 Essential (primary) hypertension; F10.20 Alcohol dependence, uncomplicated; Z76.0 Encounter for issue of repeat prescription; X58.XXXA Exposure to other specified factors, initial encounter; Y93.89 Activity, other specified; Y92.89 Other specified places as the place of occurrence of the external cause; Y99.8 Other external cause status
CPT/HCPCS: 99283